=== PATIENT | male | born 1985 ===

== ENCOUNTER 2022-10-01 12:55 | Emergency (ER) | payer MEDICAID ==
[~2022-10-01] VITALS: Ht 165.1 cm; Wt 113.6 kg
[2022-10-01 13:02] VITALS: BP 141/90
[2022-10-06] MEDS ORDERED: OLAN10TA3 PO (17:18)
== END 2022-10-01 14:17 | disposition left against medical advice (07) ==
LOC: ER 12:56
DX: Z00.8 Encounter for other general examination (principal); Z53.21 Procedure and treatment not carried out due to patient leaving prior to being seen by health care provider